=== PATIENT | female | born 1995 | race Caucasian/White ===

== ENCOUNTER 2020-04-29 06:36 | Inpatient (IN) ==
[2020-04-29] MEDS ORDERED: *HR* HYDROmorphone (PF) 1 MG/ML SYRINGE IVP ONE ×2 (07:06→10:22)
[2020-04-29] MEDS ORDERED: Isovue-370 500 ML BOTTLE IVP ONE (07:06)
[2020-04-29] MEDS ORDERED: Ketorolac 15 MG/ML VIAL IVP ONE (07:07)
[2020-04-29] MEDS ORDERED: 0.9 % Sodium Chloride 1,000 ML IVC ONE (07:13)
[2020-04-29 07:30] LABS: Basophils % 0.2 %; Eosinophils # 0.1 K/mcL (0.0-0.6); Eosinophils % 0.8 %; Hematocrit 33.8 % (35.3-44.9); Hemoglobin 10.7 g/dL (11.5-15.4); Lymphocytes # 1.7 K/mcL (0.6-4.6); Lymphocytes % 11.1 %; Mean Corpuscular HGB Conc 31.7 g/dL (31.6-35.5); Mean Corpuscular Hemoglobin 28.3 pg (28.0-33.3); Mean Corpuscular Volume 89.4 fL (83.0-100.0); Mean Platelet Volume 11.3 fL (9.4-12.4); Monocytes % 6.4 %; Neutrophils # 12.6 K/mcL (1.6-8.9); Platelet Count 251 K/mcL (140-400); Red Blood Count 3.78 M/mcL (3.82-4.97); Red Cell Distribution Width 15.8 % (11.5-14.5); Segmented Neutrophils % 80.5 %; White Blood Count 15.6 K/mcL (4.3-11.1)
[2020-04-29] MEDS ORDERED: *HR* LORazepam 2 MG/ML VIAL IVP ONE (07:38)
[2020-04-29 07:51] LABS: BUN/Creatinine Ratio 27 (6-26); Blood Urea Nitrogen 25 mg/dL (6-20); Calcium 9.4 mg/dL (8.6-10.3); Carbon Dioxide 27 mEq/L (23-29); Chloride 101 mEq/L (98-107); Glucose 117 mg/dL (70-105); Osmolality,Calculated 287 (280-300); Potassium 3.6 mEq/L (3.5-5.1); Sodium 136 mEq/L (136-145); eGFR For African Americans > 60 (> 60); eGFR For Non-African Americans > 60 (> 60)
[2020-04-29 07:53] LABS: Troponin I < 0.03 ng/mL (< 0.04)
[2020-04-29] MEDS ORDERED: Gentamicin 80 MG in 0.9 % Sodium Chloride 100 ML IVPB STA (09:50)
[2020-04-29 10:20] LABS: C-Reactive Protein > 300 mg/L (Less than 10)
[2020-04-29] MEDS ORDERED: Naloxone 0.4 MG/ML INJ IVP PRN (10:37)
[2020-04-29] MEDS ORDERED: Perflutren Lipid Microsphere 1.3 ML in 0.9 % Sodium Chloride 8.7 ML IVP PRN (10:38)
[2020-04-29] MEDS ORDERED: Vancomycin 0 MG in 0.9 % Sodium Chloride 250 ML IVPB SCH (11:00)
[2020-04-29] MEDS: Meropenem 1,000 MG in 0.9 % Sodium Chloride Mini Bag 100 ML IVPB SCH ×2 (17:55→19:41)
[2020-04-29] MEDS: 0.9 % Sodium Chloride 1,000 ML IVC SCH (17:55)
[2020-04-29] MEDS: Ketorolac 30 MG/ML VIAL IVP PRN (19:26)
[2020-04-29] MEDS ORDERED: Morphine Sulfate 2 MG/ML SYRINGE IVP ONE (21:32)
[2020-04-29] MEDS: Acetaminophen 325 MG TABLET PO PRN (21:36)
[2020-04-29 21:55] LABS: blaKPC Carbapenem-Resist Gene Not Detected (Not Detect)
[2020-04-29 21:56] LABS: Acinetobacter baumannii by PCR Not Detected (Not Detect); Candida albicans by PCR Not Detected (Not Detect); Candida glabrata by PCR Not Detected (Not Detect); Candida krusei by PCR Not Detected (Not Detect); Candida parapsilosis by PCR Not Detected (Not Detect); Candida tropicalis by PCR Not Detected (Not Detect); Enterobacter cloacae Cmplx PCR Not Detected (Not Detect); Enterobacteriaceae by PCR Not Detected (Not Detect); Enterococcus by PCR Not Detected (Not Detect); Escherichia coli by PCR Not Detected (Not Detect); Klebsiella oxytoca by PCR Not Detected (Not Detect); Klebsiella pneumoniae by PCR Not Detected (Not Detect); Proteus by PCR Not Detected (Not Detect); Pseudomonas aeruginosa by PCR Not Detected (Not Detect); Serratia marcescens by PCR Not Detected (Not Detect); Staphylococcus aureus by PCR DETECTED (Not Detect); Staphylococcus by PCR DETECTED (Not Detect); Streptococcus agalactiae(B)PCR Not Detected (Not Detect); Streptococcus by PCR Not Detected (Not Detect); Streptococcus pneumoniae PCR Not Detected (Not Detect); Streptococcus pyogenes (A) PCR Not Detected (Not Detect); mecA Methicillin-Resist Gene DETECTED (Not Detect)
[2020-04-29 22:38] LABS: Adenovirus Not Detected (Not Detect); Bordetella Pertussis Not Detected (Not Detect); Chlamydophila pneumoniae Not Detected (Not Detect); Coronavirus 229E Not Detected (Not Detect); Coronavirus HKU1 Not Detected (Not Detect); Coronavirus NL63 Not Detected (Not Detect); Coronavirus OC43 Not Detected (Not Detect); Human Metapneumovirus Not Detected (Not Detect); Human Rhinovirus/Enterovirus Not Detected (Not Detect); Influenza A Subtype 2009 H1 Not Detected (Not Detect); Influenza B Not Detected (Not Detect); Mycoplasma pneumoniae Not Detected (Not Detect); Parainfluenza Virus 1 Not Detected (Not Detect); Parainfluenza Virus 2 Not Detected (Not Detect); Parainfluenza Virus 3 Not Detected (Not Detect); Parainfluenza Virus 4 Not Detected (Not Detect); Respiratory Syncytial Virus Not Detected (Not Detect); SARS-CoV-2 Not Detected (Not Detect)
[2020-04-30] MEDS: Ketorolac 30 MG/ML VIAL IVP PRN ×3 (02:33→17:52)
[2020-04-30] MEDS: Meropenem 1,000 MG in 0.9 % Sodium Chloride Mini Bag 100 ML IVPB SCH ×3 (02:36→17:07)
[2020-04-30 03:14] LABS: Basophils % 0.3 %; Eosinophils % 0.3 %; Hematocrit 30.3 % (35.3-44.9); Hemoglobin 9.9 g/dL (11.5-15.4); Immature Granulocytes % 1.4 % (0-4); Lymphocytes # 1.9 K/mcL (0.6-4.6); Lymphocytes % 12.4 %; Mean Corpuscular HGB Conc 32.7 g/dL (31.6-35.5); Mean Corpuscular Hemoglobin 28.6 pg (28.0-33.3); Mean Corpuscular Volume 87.6 fL (83.0-100.0); Mean Platelet Volume 10.8 fL (9.4-12.4); Monocytes # 0.9 K/mcL (0.0-1.3); Monocytes % 5.5 %; Neutrophils # 12.5 K/mcL (1.6-8.9); Platelet Count 272 K/mcL (140-400); Red Blood Count 3.46 M/mcL (3.82-4.97); Red Cell Distribution Width 15.9 % (11.5-14.5); Segmented Neutrophils % 80.1 %; White Blood Count 15.5 K/mcL (4.3-11.1)
[2020-04-30 03:34] LABS: BUN/Creatinine Ratio 22 (6-26); Blood Urea Nitrogen 19 mg/dL (6-20); Carbon Dioxide 22 mEq/L (23-29); Chloride 107 mEq/L (98-107); Glucose 89 mg/dL (70-105); Osmolality,Calculated 290 (280-300); Potassium 3.7 mEq/L (3.5-5.1); Sodium 139 mEq/L (136-145); eGFR For African Americans > 60 (> 60); eGFR For Non-African Americans > 60 (> 60)
[2020-04-30] MEDS: 0.9 % Sodium Chloride 1,000 ML IVC SCH ×2 (05:24→17:09)
[2020-04-30] MEDS: *HR* Enoxaparin 40 MG/0.4 ML SYRINGE SQ SCH (05:26)
[2020-04-30] MEDS: Acetaminophen 325 MG TABLET PO PRN (07:55)
[2020-04-30] MEDS: *HR* OxyCODONE/APAP 5/325 TABLET PO PRN ×3 (11:55→22:15)
[2020-04-30 17:31] LABS: Rheumatoid Factor < 10 IU/mL (Less than 14)
[2020-04-30 18:35] LABS: HIV-1&2 Antibody & p24 Ag Nonreactive (Nonreactive)
[2020-04-30] MEDS ORDERED: Levalbuterol Neb 1.25 MG/3 ML IH ONE (22:49)
[2020-05-01] MEDS: Ketorolac 30 MG/ML VIAL IVP PRN ×2 (00:26→09:25)
[2020-05-01] MEDS: Vancomycin 1,250 MG/262.5 ML IV.SOLN IVPB SCH ×3 (00:27→23:00)
[2020-05-01] MEDS: 0.9 % Sodium Chloride 1,000 ML IVC SCH ×3 (04:43→14:39)
[2020-05-01] MEDS: Meropenem 1,000 MG in 0.9 % Sodium Chloride Mini Bag 100 ML IVPB SCH ×3 (04:45→18:15)
[2020-05-01 04:59] LABS: Basophils # 0.1 K/mcL (0.0-0.2); Basophils % 0.4 %; Eosinophils # 0.2 K/mcL (0.0-0.6); Hematocrit 31.4 % (35.3-44.9); Hemoglobin 9.9 g/dL (11.5-15.4); Immature Granulocytes % 3.1 % (0-4); Lymphocytes # 2.4 K/mcL (0.6-4.6); Lymphocytes % 15.3 %; Mean Corpuscular HGB Conc 31.5 g/dL (31.6-35.5); Mean Corpuscular Hemoglobin 27.4 pg (28.0-33.3); Mean Platelet Volume 10.3 fL (9.4-12.4); Monocytes # 0.9 K/mcL (0.0-1.3); Monocytes % 5.8 %; Neutrophils # 11.8 K/mcL (1.6-8.9); Platelet Count 345 K/mcL (140-400); Red Blood Count 3.61 M/mcL (3.82-4.97); Red Cell Distribution Width 15.9 % (11.5-14.5); Segmented Neutrophils % 74.4 %; White Blood Count 15.8 K/mcL (4.3-11.1)
[2020-05-01 05:17] LABS: % Iron Saturation 10 % (15-50); Alanine Aminotransferase 8 Units/L (7-52); Albumin 2.5 g/dL (3.5-5.7); Albumin/Globulin Ratio 0.8 (1.1-2.2); Alkaline Phosphatase 97 Units/L (34-104); Aspartate Amino Transferase 11 Units/L (13-39); BUN/Creatinine Ratio 18 (6-26); Bilirubin,Total 0.5 mg/dL (0.3-1.0); Blood Urea Nitrogen 15 mg/dL (6-20); Calcium 7.5 mg/dL (8.6-10.3); Carbon Dioxide 20 mEq/L (23-29); Chloride 113 mEq/L (98-107); Globulin 3.2 g/dL (2.4-3.5); Glucose 91 mg/dL (70-105); Iron 18 mcg/dL (50-170); Osmolality,Calculated 290 (280-300); Phosphorous 2.9 mg/dL (2.7-4.5); Potassium 3.6 mEq/L (3.5-5.1); Sodium 140 mEq/L (136-145); Total Protein 5.7 g/dL (6.4-8.9); Transferrin 130 mg/dL (203-362); eGFR For African Americans > 60 (> 60); eGFR For Non-African Americans > 60 (> 60)
[2020-05-01 05:42] LABS: Folate 12.2 ng/mL (3.0-16.0)
[2020-05-01] MEDS: *HR* OxyCODONE/APAP 5/325 TABLET PO PRN ×3 (05:53→15:34)
[2020-05-01] MEDS: *HR* Enoxaparin 40 MG/0.4 ML SYRINGE SQ SCH (05:53)
[2020-05-01] MEDS: Morphine Sulfate 2 MG/ML SYRINGE IVP PRN (17:06)
[2020-05-01] MEDS ORDERED: Morphine Sulfate 2 MG/ML SYRINGE IVP ONE (21:59)
[2020-05-01] MEDS ORDERED: Melatonin 3 MG TABLET PO ONE (22:26)
[2020-05-01] MEDS ORDERED: Ketorolac 15 MG/ML VIAL IVP ONE (23:22)
[2020-05-02] MEDS ORDERED: Acetaminophen IV 1,000 MG/100 ML INFUS..BTL IVPB ONE (00:08)
[2020-05-02] MEDS: Morphine Sulfate 2 MG/ML SYRINGE IVP PRN (02:45)
[2020-05-02] MEDS: Meropenem 1,000 MG in 0.9 % Sodium Chloride Mini Bag 100 ML IVPB SCH ×2 (02:45→11:15)
[2020-05-02 03:13] LABS: Hematocrit 29.4 % (35.3-44.9); Hemoglobin 9.6 g/dL (11.5-15.4); Mean Corpuscular HGB Conc 32.7 g/dL (31.6-35.5); Mean Corpuscular Hemoglobin 28.8 pg (28.0-33.3); Mean Corpuscular Volume 88.3 fL (83.0-100.0); Mean Platelet Volume 10.1 fL (9.4-12.4); Platelet Count 322 K/mcL (140-400); Red Blood Count 3.33 M/mcL (3.82-4.97); Red Cell Distribution Width 16.3 % (11.5-14.5); White Blood Count 15.7 K/mcL (4.3-11.1)
[2020-05-02 03:32] LABS: BUN/Creatinine Ratio 15 (6-26); Blood Urea Nitrogen 12 mg/dL (6-20); Calcium 7.7 mg/dL (8.6-10.3); Carbon Dioxide 18 mEq/L (23-29); Chloride 112 mEq/L (98-107); Glucose 89 mg/dL (70-105); Osmolality,Calculated 285 (280-300); Phosphorous 2.6 mg/dL (2.7-4.5); Potassium 3.4 mEq/L (3.5-5.1); Sodium 138 mEq/L (136-145); eGFR For African Americans > 60 (> 60); eGFR For Non-African Americans > 60 (> 60)
[2020-05-02 03:51] LABS: Lymphocytes # 2.8 K/mcL (0.6-4.6); Monocytes # 0.9 K/mcL (0.0-1.3); Neutrophils # 11.3 K/mcL (1.6-8.9)
[2020-05-02 03:52] LABS: Platelet Estimate Normal (Normal)
[2020-05-02] MEDS: *HR* Enoxaparin 40 MG/0.4 ML SYRINGE SQ SCH (05:36)
[2020-05-02] MEDS: 0.9 % Sodium Chloride 1,000 ML IVC SCH ×2 (05:36→11:28)
[2020-05-02] MEDS ORDERED: Ketorolac 15 MG/ML VIAL IVP ONE (06:24)
[2020-05-02] MEDS ORDERED: *HR* HYDROmorphone (PF) 1 MG/ML SYRINGE IVP ONE (10:21)
[2020-05-02 11:04] VITALS: BP 135/65
== END 2020-05-02 12:36 | disposition left against medical advice (07) | DRG 720 ==
LOC: EMEROOARM 06:36 → SUATTDRO 15:52 → 2ANU 15:52 → 2NENU 17:00 → 2ANU 04-30 00:51
PROVIDERS: ADMIT Internal Medicine; ATTEND Internal Medicine

== ENCOUNTER 2020-05-03 11:10 | Inpatient (IN) ==
[2020-05-03 11:42] LABS: ABG Base Excess -4 mEq/L (-2 to 3); ABG HCO3 19 mEq/L (21-27); ABG Oxygen Saturation 88 % (95-98); ABG PCO2 28 mmHg (35-45); ABG PH 7.45 pH Units (7.32-7.45); ABG PO2 51 mmHg (85-104); ABG TCO2 20 mEq/L (20-26); Blood Gas Pressure Support 12 cm H2O
[2020-05-03] MEDS ORDERED: *HR* LORazepam 2 MG/ML VIAL IVP ONE ×2 (11:56→14:52)
[2020-05-03] MEDS ORDERED: Vancomycin 1,250 MG/262.5 ML IV.SOLN IVPB ONE (12:00)
[2020-05-03 12:10] LABS: Hemoglobin 10.3 g/dL (11.5-15.4); Lymphocytes # 2.6 K/mcL (0.6-4.6); Mean Corpuscular HGB Conc 32.2 g/dL (31.6-35.5); Mean Corpuscular Hemoglobin 28.2 pg (28.0-33.3); Mean Corpuscular Volume 87.7 fL (83.0-100.0); Mean Platelet Volume 9.5 fL (9.4-12.4); Nucleated Red Blood Cells 0.1 /100 WBC (0); Platelet Count 422 K/mcL (140-400); Red Blood Count 3.65 M/mcL (3.82-4.97); Red Cell Distribution Width 16.4 % (11.5-14.5)
[2020-05-03] MEDS ORDERED: Meropenem 1,000 MG in 0.9 % Sodium Chloride Mini Bag 100 ML IVPB STA (12:14)
[2020-05-03 12:19] LABS: Bilirubin,Urine Negative (Negative); Blood,Urine Negative (Negative); Clarity,Urine Clear (Clear); Color,Urine Light-Yellow (Yellow); Glucose,Urine (UA) Normal (Normal); Granular Casts,Urine Few per lpf (None Seen); Hyaline Casts,Urine Few per lpf (None Seen); Ketones,Urine Negative (Negative); Leukocyte Esterase,Urine Negative (Negative); Mucus,Urine Few per lpf (None-Few); Nitrite,Urine Negative (Negative); PH,Urine 6.5 pH Units (5.0-8.0); Protein,Urine 50 mg/dL (Neg-Trace); RBC,Urine 0-3 per hpf (0-3); Specific Gravity,Urine 1.018 (1.010-1.025); Squamous Epithelial Cell,Urine Few per hpf (None-Few); Urobilinogen,Urine Normal (Normal); White Blood Cell Casts,Urine Few per lpf (None Seen)
[2020-05-03 12:22] LABS: White Blood Count 32.8 K/mcL (4.3-11.1)
[2020-05-03 12:25] LABS: BUN/Creatinine Ratio 9 (6-26); Blood Urea Nitrogen 8 mg/dL (6-20); C-Reactive Protein 185 mg/L (Less than 10); Calcium 7.7 mg/dL (8.6-10.3); Carbon Dioxide 20 mEq/L (23-29); Chloride 105 mEq/L (98-107); Glucose 134 mg/dL (70-105); Osmolality,Calculated 274 (280-300); Potassium 3.7 mEq/L (3.5-5.1); Sodium 132 mEq/L (136-145); eGFR For African Americans > 60 (> 60); eGFR For Non-African Americans > 60 (> 60)
[2020-05-03] MEDS ORDERED: Gentamicin 70 MG in 0.9 % Sodium Chloride 100 ML IVPB ONE ×2 (12:31→13:00)
[2020-05-03 12:42] LABS: Monocytes # 1.3 K/mcL (0.0-1.3); Neutrophils # 28.9 K/mcL (1.6-8.9)
[2020-05-03 12:43] LABS: Platelet Estimate Normal (Normal)
[2020-05-03] MEDS ORDERED: Naloxone 0.4 MG/ML INJ IVP PRN (13:06)
[2020-05-03] MEDS ORDERED: Ringers Solution, Lactated 1,000 ML IVC SCH (13:45)
[2020-05-03] MEDS ORDERED: *HR* Rocuronium Bromide 100 MG/10 ML VIAL IVP ONE (14:09)
[2020-05-03] MEDS ORDERED: *HR* Midazolam HCl 5 MG/5 ML VIAL IVP ONE ×4 (14:09→18:36)
[2020-05-03] MEDS ORDERED: *HR* Etomidate 40 MG/20 ML VIAL IVP ONE (14:09)
[2020-05-03] MEDS ORDERED: *HR* Propofol 200 MG/20 ML VIAL IVP ONE ×2 (14:09→17:33)
[2020-05-03] MEDS ORDERED: *HR* Midazolam HCl 2 MG/2 ML VIAL IVP ONE (14:09)
[2020-05-03] MEDS ORDERED: *HR* Succinylcholine 200 MG/10 ML VIAL IVP ONE ×2 (14:09→17:33)
[2020-05-03] MEDS ORDERED: Dexmedetomidine HCl 400 MCG/100 ML MLS IVC SCH (14:15)
[2020-05-03 14:20] LABS: Adenovirus Not Detected (Not Detect); Bordetella Pertussis Not Detected (Not Detect); Chlamydophila pneumoniae Not Detected (Not Detect); Coronavirus 229E Not Detected (Not Detect); Coronavirus HKU1 Not Detected (Not Detect); Coronavirus NL63 Not Detected (Not Detect); Coronavirus OC43 Not Detected (Not Detect); Human Metapneumovirus Not Detected (Not Detect); Human Rhinovirus/Enterovirus Not Detected (Not Detect); Influenza A Subtype 2009 H1 Not Detected (Not Detect); Influenza B Not Detected (Not Detect); Mycoplasma pneumoniae Not Detected (Not Detect); Parainfluenza Virus 1 Not Detected (Not Detect); Parainfluenza Virus 2 Not Detected (Not Detect); Parainfluenza Virus 3 Not Detected (Not Detect); Parainfluenza Virus 4 Not Detected (Not Detect); Respiratory Syncytial Virus Not Detected (Not Detect); SARS-CoV-2 Not Detected (Not Detect)
[2020-05-03] MEDS ORDERED: Ringers Solution, Lactated 1,000 ML IVC ONE ×3 (15:00→19:43)
[2020-05-03] MEDS ORDERED: *HR* HYDROmorphone 2 MG/ML SYRINGE IVP ONE (15:17)
[2020-05-03] MEDS ORDERED: *HR* HYDROmorphone (PF) 1 MG/ML SYRINGE IVP ONE (15:17)
[2020-05-03 15:38] LABS: Alanine Aminotransferase 7 Units/L (7-52); Albumin 2.5 g/dL (3.5-5.7); Albumin/Globulin Ratio 0.8 (1.1-2.2); Alkaline Phosphatase 91 Units/L (34-104); Aspartate Amino Transferase 25 Units/L (13-39); BUN/Creatinine Ratio 8 (6-26); Bilirubin,Total 0.4 mg/dL (0.3-1.0); Blood Urea Nitrogen 7 mg/dL (6-20); Calcium 7.5 mg/dL (8.6-10.3); Carbon Dioxide 19 mEq/L (23-29); Chloride 105 mEq/L (98-107); Globulin 3.3 g/dL (2.4-3.5); Glucose 85 mg/dL (70-105); Osmolality,Calculated 271 (280-300); Potassium 4.1 mEq/L (3.5-5.1); Sodium 132 mEq/L (136-145); Total Protein 5.8 g/dL (6.4-8.9); eGFR For African Americans > 60 (> 60); eGFR For Non-African Americans > 60 (> 60)
[2020-05-03 15:40] LABS: Creatine Kinase 25 Units/L (30-223); Troponin I < 0.03 ng/mL (< 0.04)
[2020-05-03] MEDS ORDERED: Ipratropium/Albuterol Neb 3 ML IH PRN (16:19)
[2020-05-03] MEDS ORDERED: *HR* FentaNYL (PF) 100 MCG/2 ML VIAL IVP PRN (16:21)
[2020-05-03] MEDS: *HR* Midazolam HCl 2 MG/2 ML VIAL IVP PRN (17:14)
[2020-05-03] MEDS ORDERED: D5% in Lactated Ringers 1,000 ML IVC SCH (17:15)
[2020-05-03] MEDS ORDERED: Lidocaine -MPF 2% 2 ML VIAL ONE (17:33)
[2020-05-03] MEDS ORDERED: *HR* FentaNYL (PF) 100 MCG/2 ML VIAL ONE (17:33)
[2020-05-03] MEDS ORDERED: Acetaminophen IV 1,000 MG/100 ML INFUS..BTL IVPB SCH (18:00)
[2020-05-03] MEDS: FentaNYL (PF) 1,000 MCG/100 ML IV.SOLN IVC SCH (18:26)
[2020-05-03] MEDS: Midazolam HCl 50 MG/100 ML IV.SOLN IVC SCH (18:27)
[2020-05-03 18:52] LABS: ABG Base Excess -4 mEq/L (-2 to 3); ABG HCO3 22 mEq/L (21-27); ABG Oxygen Saturation 94 % (95-98); ABG PCO2 42 mmHg (35-45); ABG PH 7.33 pH Units (7.32-7.45); ABG PO2 78 mmHg (85-104); ABG TCO2 23 mEq/L (20-26); Blood Gas VT 400 cc
[2020-05-03] MEDS ORDERED: Artificial Tears SOLN 15 ML BOTTLE BOTH EYES PRN (19:56)
[2020-05-03 20:04] LABS: Lipase 3 Units/L (11-82)
[2020-05-03] MEDS: Artificial Tears SOLN 15 ML BOTTLE BOTH EYES SCH ×2 (20:31→23:43)
[2020-05-03] MEDS: Norepinephrine 4 MG/254 ML IV.SOLN IVC SCH (20:32)
[2020-05-03] MEDS: Chlorhexidine Rinse 15 ML MOUTHWASH MM SCH (20:33)
[2020-05-03 21:07] LABS: BUN/Creatinine Ratio 8 (6-26); Blood Urea Nitrogen 6 mg/dL (6-20); Calcium 7.3 mg/dL (8.6-10.3); Carbon Dioxide 21 mEq/L (23-29); Chloride 105 mEq/L (98-107); Glucose 94 mg/dL (70-105); Osmolality,Calculated 269 (280-300); Potassium 4.2 mEq/L (3.5-5.1); Sodium 131 mEq/L (136-145); eGFR For African Americans > 60 (> 60); eGFR For Non-African Americans > 60 (> 60)
[2020-05-03 21:13] LABS: Basophils % 0.2 %; Hemoglobin 8.8 g/dL (11.5-15.4); Monocytes % 4.2 %
[2020-05-03 21:14] LABS: Basophils # 0.1 K/mcL (0.0-0.2); Eosinophils # 0.4 K/mcL (0.0-0.6); Eosinophils % 1.3 %; Hematocrit 27.2 % (35.3-44.9); Immature Granulocytes % 2.1 % (0-4); Lymphocytes # 3.5 K/mcL (0.6-4.6); Lymphocytes % 11.6 %; Mean Corpuscular HGB Conc 32.4 g/dL (31.6-35.5); Mean Corpuscular Hemoglobin 28.7 pg (28.0-33.3); Mean Corpuscular Volume 88.6 fL (83.0-100.0); Mean Platelet Volume 9.5 fL (9.4-12.4); Monocytes # 1.3 K/mcL (0.0-1.3); Platelet Count 343 K/mcL (140-400); Red Blood Count 3.07 M/mcL (3.82-4.97); Red Cell Distribution Width 16.5 % (11.5-14.5); Segmented Neutrophils % 80.6 %
[2020-05-03 21:15] LABS: Neutrophils # 24.3 K/mcL (1.6-8.9)
[2020-05-03 21:18] LABS: White Blood Count 30.1 K/mcL (4.3-11.1)
[2020-05-03] MEDS ORDERED: Famotidine 20 MG/2 ML VIAL IVP ONE (21:22)
[2020-05-03] MEDS ORDERED: Pantoprazole 40 MG VIAL IVP ONE (21:40)
[2020-05-03 21:53] LABS: Platelet Estimate Normal (Normal)
[2020-05-03] MEDS ORDERED: Isovue-370 500 ML BOTTLE IVP ONE (21:54)
[2020-05-03 22:15] LABS: ABG Base Excess -3 mEq/L (-2 to 3); ABG HCO3 22 mEq/L (21-27); ABG Oxygen Saturation 97 % (95-98); ABG PCO2 35 mmHg (35-45); ABG PO2 87 mmHg (85-104); ABG TCO2 23 mEq/L (20-26); Blood Gas Modality ASSIST CONTROL; Blood Gas VT 400 cc
[2020-05-03] MEDS: Meropenem 2,000 MG in Water for inj. (sterile) 20 ML IVP SCH (22:18)
[2020-05-03] MEDS: *HR* Heparin 5,000 UNIT/ML VIAL SQ SCH (22:19)
[2020-05-04] MEDS: Artificial Tears SOLN 15 ML BOTTLE BOTH EYES SCH ×6 (03:38→23:23)
[2020-05-04] MEDS: FentaNYL (PF) 1,000 MCG/100 ML IV.SOLN IVC SCH ×4 (03:38→22:37)
[2020-05-04 03:49] LABS: Basophils # 0.1 K/mcL (0.0-0.2); Basophils % 0.4 %; Eosinophils % 2.9 %; Hematocrit 28.8 % (35.3-44.9); Hemoglobin 9.3 g/dL (11.5-15.4); Immature Granulocytes % 4.7 % (0-4); Lymphocytes # 3.7 K/mcL (0.6-4.6); Lymphocytes % 14.1 %; Mean Corpuscular HGB Conc 32.3 g/dL (31.6-35.5); Mean Corpuscular Hemoglobin 28.9 pg (28.0-33.3); Mean Corpuscular Volume 89.4 fL (83.0-100.0); Mean Platelet Volume 9.6 fL (9.4-12.4); Monocytes # 1.3 K/mcL (0.0-1.3); Monocytes % 5.1 %; Neutrophils # 18.9 K/mcL (1.6-8.9); Platelet Count 380 K/mcL (140-400); Red Blood Count 3.22 M/mcL (3.82-4.97); Red Cell Distribution Width 16.6 % (11.5-14.5); Segmented Neutrophils % 72.8 %; White Blood Count 25.9 K/mcL (4.3-11.1)
[2020-05-04 03:50] LABS: INR 1.4; Prothrombin Time 16.2 Seconds (9.4-12.1)
[2020-05-04 03:51] LABS: Eosinophils # 0.8 K/mcL (0.0-0.6)
[2020-05-04 04:05] LABS: Albumin 2.2 g/dL (3.5-5.7); Albumin/Globulin Ratio 0.7 (1.1-2.2); Bilirubin,Direct 0.1 mg/dL (0.0-0.2); Bilirubin,Indirect 0.3 mg/dL (0.0-1.0); Bilirubin,Total 0.4 mg/dL (0.3-1.0); Total Protein 5.2 g/dL (6.4-8.9)
[2020-05-04 04:17] LABS: Anisocytosis 1+ (Not Present); Hypochromasia Present (Not Present); Platelet Estimate Normal (Normal)
[2020-05-04 04:48] LABS: ABG Base Excess -1 mEq/L (-2 to 3); ABG HCO3 22 mEq/L (21-27); ABG Oxygen Saturation 99 % (95-98); ABG PCO2 32 mmHg (35-45); ABG PH 7.45 pH Units (7.32-7.45); ABG PO2 133 mmHg (85-104); ABG TCO2 23 mEq/L (20-26); Blood Gas Modality AF; Blood Gas VT 400 cc
[2020-05-04] MEDS: *HR* Heparin 5,000 UNIT/ML VIAL SQ SCH ×2 (05:22→17:18)
[2020-05-04 05:30] LABS: BUN/Creatinine Ratio 7 (6-26); Blood Urea Nitrogen 6 mg/dL (6-20); Calcium 7.6 mg/dL (8.6-10.3); Carbon Dioxide 22 mEq/L (23-29); Chloride 110 mEq/L (98-107); Glucose 85 mg/dL (70-105); Osmolality,Calculated 283 (280-300); Sodium 138 mEq/L (136-145); eGFR For African Americans > 60 (> 60); eGFR For Non-African Americans > 60 (> 60)
[2020-05-04] MEDS: Meropenem 2,000 MG in Water for inj. (sterile) 20 ML IVP SCH ×3 (07:43→23:23)
[2020-05-04] MEDS: Chlorhexidine Rinse 15 ML MOUTHWASH MM SCH ×2 (07:43→20:03)
[2020-05-04 11:32] LABS: RBC,Pleural Fluid 47000 RBC/mcL
[2020-05-04 12:14] LABS: Total Protein,Pleural Fluid 3.7 g/dL
[2020-05-04 14:21] LABS: Appearance of Pleural Fl Hazy (Clear)
[2020-05-04 14:23] LABS: Basophils,Pleural Fluid 0 %; Eosinophils,Pleural Fluid 0 %
[2020-05-04] MEDS: Midazolam HCl 50 MG/100 ML IV.SOLN IVC SCH (18:26)
[2020-05-04] MEDS: Norepinephrine 4 MG/254 ML IV.SOLN IVC SCH (22:09)
[2020-05-04] MEDS: Vancomycin 1,250 MG/262.5 ML IV.SOLN IVPB SCH (22:10)
[2020-05-04] MEDS ORDERED: Dextrose Gel 15 GM/37.5 ML TUBE PO PRN ×2 (23:26)
[2020-05-04] MEDS ORDERED: D5% in Water 1,000 ML IVC PRN (23:26)
[2020-05-04] MEDS: *HR* Dextrose 50 % in Water (Vial) 50 ML VIAL IVP PRN (23:32)
[2020-05-05] MEDS: Artificial Tears SOLN 15 ML BOTTLE BOTH EYES SCH ×6 (03:16→23:22)
[2020-05-05] MEDS: FentaNYL (PF) 1,000 MCG/100 ML IV.SOLN IVC SCH ×2 (03:16→07:10)
[2020-05-05 04:13] LABS: Basophils % 0.3 %; Eosinophils # 0.4 K/mcL (0.0-0.6); Eosinophils % 2.9 %; Hematocrit 25.2 % (35.3-44.9); Hemoglobin 8.1 g/dL (11.5-15.4); Immature Granulocytes % 3.2 % (0-4); Lymphocytes # 2.7 K/mcL (0.6-4.6); Lymphocytes % 17.9 %; Mean Corpuscular HGB Conc 32.1 g/dL (31.6-35.5); Mean Corpuscular Hemoglobin 28.8 pg (28.0-33.3); Mean Corpuscular Volume 89.7 fL (83.0-100.0); Mean Platelet Volume 9.7 fL (9.4-12.4); Monocytes # 0.6 K/mcL (0.0-1.3); Monocytes % 3.9 %; Neutrophils # 10.8 K/mcL (1.6-8.9); Platelet Count 284 K/mcL (140-400); Red Blood Count 2.81 M/mcL (3.82-4.97); Red Cell Distribution Width 16.5 % (11.5-14.5); Segmented Neutrophils % 71.8 %; White Blood Count 15.1 K/mcL (4.3-11.1)
[2020-05-05 04:41] LABS: BUN/Creatinine Ratio 7 (6-26); Blood Urea Nitrogen 4 mg/dL (6-20); Calcium 7.4 mg/dL (8.6-10.3); Carbon Dioxide 22 mEq/L (23-29); Chloride 107 mEq/L (98-107); Glucose 69 mg/dL (70-105); Osmolality,Calculated 281 (280-300); Potassium 3.7 mEq/L (3.5-5.1); Sodium 138 mEq/L (136-145); eGFR For African Americans > 60 (> 60); eGFR For Non-African Americans > 60 (> 60)
[2020-05-05] MEDS: Vancomycin 1,250 MG/262.5 ML IV.SOLN IVPB SCH ×3 (05:07→23:23)
[2020-05-05] MEDS: *HR* Heparin 5,000 UNIT/ML VIAL SQ SCH ×2 (05:07→17:52)
[2020-05-05] MEDS: *HR* Dextrose 50 % in Water (Vial) 50 ML VIAL IVP PRN (05:08)
[2020-05-05 05:28] LABS: ABG Base Excess -1 mEq/L (-2 to 3); ABG HCO3 23 mEq/L (21-27); ABG Oxygen Saturation 99 % (95-98); ABG PCO2 31 mmHg (35-45); ABG PH 7.48 pH Units (7.32-7.45); ABG PO2 115 mmHg (85-104); ABG TCO2 24 mEq/L (20-26); Blood Gas Modality VC+; Blood Gas VT 380 cc
[2020-05-05] MEDS: D5% in Water 1,000 ML IVC SCH ×2 (07:26→17:46)
[2020-05-05] MEDS: Meropenem 2,000 MG in Water for inj. (sterile) 20 ML IVP SCH ×3 (07:36→23:22)
[2020-05-05] MEDS: Chlorhexidine Rinse 15 ML MOUTHWASH MM SCH ×2 (07:36→20:17)
[2020-05-05] MEDS: Dexmedetomidine HCl 400 MCG/100 ML MLS IVC SCH ×3 (10:59→21:30)
[2020-05-05] MEDS: FentaNYL (PF) 2,500 MCG/50 ML IV.SOLN IVC SCH ×2 (13:05→23:35)
[2020-05-05] MEDS ORDERED: *HR* Rocuronium Bromide 50 MG/5 ML VIAL IVP ONE ×2 (14:27→16:43)
[2020-05-05 17:30] LABS: Source of Body Fluid RLL BAL
[2020-05-05] MEDS: Midazolam HCl 50 MG/100 ML IV.SOLN IVC SCH (17:47)
[2020-05-05] MEDS: Norepinephrine 4 MG/254 ML IV.SOLN IVC SCH (20:15)
[2020-05-05 22:04] LABS: Appearance of Body Fluid Slightly Hazy (Clear); Volume of Body Fluid 15 mL
[2020-05-05 22:56] LABS: Appearance of Body Fluid Hazy (Clear); Volume of Body Fluid 12 mL
[2020-05-06] MEDS: Dexmedetomidine HCl 400 MCG/100 ML MLS IVC SCH ×5 (04:00→21:02)
[2020-05-06 04:48] LABS: ABG Base Excess 4 mEq/L (-2 to 3); ABG HCO3 29 mEq/L (21-27); ABG Oxygen Saturation 98 % (95-98); ABG PCO2 45 mmHg (35-45); ABG PH 7.42 pH Units (7.32-7.45); ABG PO2 107 mmHg (85-104); ABG TCO2 30 mEq/L (20-26); Blood Gas Modality VC+; Blood Gas VT 380 cc
[2020-05-06 04:55] LABS: Basophils % 0.2 %; Eosinophils # 0.4 K/mcL (0.0-0.6); Hematocrit 26.8 % (35.3-44.9); Hemoglobin 8.3 g/dL (11.5-15.4); Immature Granulocytes % 3.1 % (0-4); Lymphocytes # 2.4 K/mcL (0.6-4.6); Lymphocytes % 16.7 %; Mean Corpuscular Hemoglobin 27.4 pg (28.0-33.3); Mean Corpuscular Volume 88.4 fL (83.0-100.0); Mean Platelet Volume 9.9 fL (9.4-12.4); Monocytes # 0.7 K/mcL (0.0-1.3); Monocytes % 4.8 %; Neutrophils # 10.4 K/mcL (1.6-8.9); Platelet Count 355 K/mcL (140-400); Red Blood Count 3.03 M/mcL (3.82-4.97); Red Cell Distribution Width 15.9 % (11.5-14.5); Segmented Neutrophils % 72.2 %; White Blood Count 14.4 K/mcL (4.3-11.1)
[2020-05-06] MEDS: Artificial Tears SOLN 15 ML BOTTLE BOTH EYES SCH ×6 (04:59→23:59)
[2020-05-06] MEDS: D5% in Water 1,000 ML IVC SCH ×3 (05:00→23:34)
[2020-05-06 05:11] LABS: Alanine Aminotransferase 4 Units/L (7-52); Albumin 2.1 g/dL (3.5-5.7); Albumin/Globulin Ratio 0.6 (1.1-2.2); Alkaline Phosphatase 73 Units/L (34-104); Aspartate Amino Transferase 10 Units/L (13-39); BUN/Creatinine Ratio 6 (6-26); Bilirubin,Total 0.4 mg/dL (0.3-1.0); Blood Urea Nitrogen 3 mg/dL (6-20); Calcium 7.6 mg/dL (8.6-10.3); Carbon Dioxide 25 mEq/L (23-29); Chloride 106 mEq/L (98-107); Globulin 3.5 g/dL (2.4-3.5); Glucose 123 mg/dL (70-105); Osmolality,Calculated 284 (280-300); Potassium 4.1 mEq/L (3.5-5.1); Sodium 138 mEq/L (136-145); Total Protein 5.6 g/dL (6.4-8.9); eGFR For African Americans > 60 (> 60); eGFR For Non-African Americans > 60 (> 60)
[2020-05-06] MEDS: Vancomycin 1,250 MG/262.5 ML IV.SOLN IVPB SCH (05:49)
[2020-05-06] MEDS: *HR* Heparin 5,000 UNIT/ML VIAL SQ SCH ×2 (05:49→17:30)
[2020-05-06] MEDS: Chlorhexidine Rinse 15 ML MOUTHWASH MM SCH ×2 (08:17→21:37)
[2020-05-06] MEDS: Meropenem 2,000 MG in Water for inj. (sterile) 20 ML IVP SCH ×3 (08:17→23:33)
[2020-05-06] MEDS: FentaNYL (PF) 2,500 MCG/50 ML IV.SOLN IVC SCH (11:16)
[2020-05-06] MEDS: Midazolam HCl 50 MG/100 ML IV.SOLN IVC SCH (15:32)
[2020-05-06] MEDS: Ziprasidone 10 MG in Water for inj. (sterile) 0.5 ML IM SCH (15:38)
[2020-05-06] MEDS: Norepinephrine 4 MG/254 ML IV.SOLN IVC SCH (19:20)
[2020-05-06] MEDS: *HR* Midazolam HCl 2 MG/2 ML VIAL IVP PRN (22:07)
[2020-05-07] MEDS: FentaNYL (PF) 2,500 MCG/50 ML IV.SOLN IVC SCH ×2 (00:30→16:41)
[2020-05-07] MEDS: Dexmedetomidine HCl 400 MCG/100 ML MLS IVC SCH ×4 (03:55→18:48)
[2020-05-07] MEDS: Artificial Tears SOLN 15 ML BOTTLE BOTH EYES SCH ×6 (03:55→23:44)
[2020-05-07 04:28] LABS: Basophils % 0.1 %; Eosinophils # 0.3 K/mcL (0.0-0.6); Eosinophils % 1.9 %; Hematocrit 26.6 % (35.3-44.9); Hemoglobin 8.1 g/dL (11.5-15.4); Immature Granulocytes % 1.9 % (0-4); Lymphocytes # 2.2 K/mcL (0.6-4.6); Lymphocytes % 14.9 %; Mean Corpuscular HGB Conc 30.5 g/dL (31.6-35.5); Mean Corpuscular Hemoglobin 27.6 pg (28.0-33.3); Mean Corpuscular Volume 90.5 fL (83.0-100.0); Mean Platelet Volume 10.1 fL (9.4-12.4); Monocytes # 0.8 K/mcL (0.0-1.3); Monocytes % 5.4 %; Platelet Count 381 K/mcL (140-400); Red Blood Count 2.94 M/mcL (3.82-4.97); Red Cell Distribution Width 15.6 % (11.5-14.5); Segmented Neutrophils % 75.8 %; White Blood Count 14.5 K/mcL (4.3-11.1)
[2020-05-07 04:45] LABS: ABG Base Excess 4 mEq/L (-2 to 3); ABG HCO3 29 mEq/L (21-27); ABG Oxygen Saturation 98 % (95-98); ABG PCO2 46 mmHg (35-45); ABG PH 7.41 pH Units (7.32-7.45); ABG PO2 104 mmHg (85-104); ABG TCO2 31 mEq/L (20-26); Blood Gas Modality ASSIST CONTROL; Blood Gas VT 380 cc
[2020-05-07 04:47] LABS: BUN/Creatinine Ratio 8 (6-26); Blood Urea Nitrogen 4 mg/dL (6-20); Calcium 7.6 mg/dL (8.6-10.3); Carbon Dioxide 29 mEq/L (23-29); Chloride 103 mEq/L (98-107); Glucose 118 mg/dL (70-105); Osmolality,Calculated 282 (280-300); Potassium 3.9 mEq/L (3.5-5.1); Sodium 137 mEq/L (136-145); eGFR For African Americans > 60 (> 60); eGFR For Non-African Americans > 60 (> 60)
[2020-05-07] MEDS: *HR* Heparin 5,000 UNIT/ML VIAL SQ SCH ×2 (05:54→18:48)
[2020-05-07] MEDS ORDERED: Water for inj. (sterile) 20 ML IV ONE ×2 (08:25→08:44)
[2020-05-07] MEDS: Meropenem 2,000 MG in Water for inj. (sterile) 20 ML IVP SCH ×3 (08:30→23:37)
[2020-05-07] MEDS: D5% in Water 1,000 ML IVC SCH ×2 (08:31→19:54)
[2020-05-07] MEDS: Chlorhexidine Rinse 15 ML MOUTHWASH MM SCH ×2 (08:32→19:53)
[2020-05-07] MEDS: Ziprasidone 10 MG in Water for inj. (sterile) 0.5 ML IM SCH (08:47)
[2020-05-07] MEDS ORDERED: *HR* LORazepam 2 MG/ML VIAL IVP PRN (14:28)
[2020-05-08] MEDS: Dexmedetomidine HCl 400 MCG/100 ML MLS IVC SCH ×5 (00:43→21:30)
[2020-05-08] MEDS: Norepinephrine 4 MG/254 ML IV.SOLN IVC SCH ×2 (01:15→22:20)
[2020-05-08 04:33] LABS: ABG Base Excess 7 mEq/L (-2 to 3); ABG HCO3 32 mEq/L (21-27); ABG Oxygen Saturation 96 % (95-98); ABG PCO2 49 mmHg (35-45); ABG PH 7.43 pH Units (7.32-7.45); ABG PO2 82 mmHg (85-104); ABG TCO2 34 mEq/L (20-26); Blood Gas VT 380 cc
[2020-05-08] MEDS: Artificial Tears SOLN 15 ML BOTTLE BOTH EYES SCH ×5 (04:37→19:44)
[2020-05-08 05:06] LABS: Basophils % 0.2 %; Eosinophils # 0.3 K/mcL (0.0-0.6); Eosinophils % 2.9 %; Hematocrit 24.9 % (35.3-44.9); Hemoglobin 7.9 g/dL (11.5-15.4); Lymphocytes # 2.2 K/mcL (0.6-4.6); Lymphocytes % 21.9 %; Mean Corpuscular HGB Conc 31.7 g/dL (31.6-35.5); Mean Corpuscular Hemoglobin 28.4 pg (28.0-33.3); Mean Corpuscular Volume 89.6 fL (83.0-100.0); Mean Platelet Volume 10.3 fL (9.4-12.4); Monocytes # 0.7 K/mcL (0.0-1.3); Monocytes % 6.4 %; Neutrophils # 6.9 K/mcL (1.6-8.9); Platelet Count 425 K/mcL (140-400); Red Blood Count 2.78 M/mcL (3.82-4.97); Red Cell Distribution Width 15.4 % (11.5-14.5); Segmented Neutrophils % 67.6 %; White Blood Count 10.2 K/mcL (4.3-11.1)
[2020-05-08 05:11] LABS: BUN/Creatinine Ratio 10 (6-26); Blood Urea Nitrogen 5 mg/dL (6-20); Calcium 7.6 mg/dL (8.6-10.3); Carbon Dioxide 31 mEq/L (23-29); Chloride 100 mEq/L (98-107); Glucose 110 mg/dL (70-105); Osmolality,Calculated 278 (280-300); Sodium 135 mEq/L (136-145); eGFR For African Americans > 60 (> 60); eGFR For Non-African Americans > 60 (> 60)
[2020-05-08] MEDS: FentaNYL (PF) 2,500 MCG/50 ML IV.SOLN IVC SCH ×2 (05:30→19:05)
[2020-05-08] MEDS: D5% in Water 1,000 ML IVC SCH ×2 (05:36→16:24)
[2020-05-08] MEDS: *HR* Heparin 5,000 UNIT/ML VIAL SQ SCH ×2 (05:39→18:29)
[2020-05-08] MEDS: Chlorhexidine Rinse 15 ML MOUTHWASH MM SCH ×2 (08:49→19:45)
[2020-05-08] MEDS: Meropenem 2,000 MG in Water for inj. (sterile) 20 ML IVP SCH ×2 (08:49→16:26)
[2020-05-08] MEDS: Ziprasidone 10 MG in Water for inj. (sterile) 0.5 ML IM SCH (08:49)
[2020-05-08] MEDS: *HR* LORazepam 2 MG/ML VIAL IVP SCH ×3 (12:32→19:44)
[2020-05-09] MEDS: *HR* LORazepam 2 MG/ML VIAL IVP SCH ×7 (00:13→23:47)
[2020-05-09] MEDS: Artificial Tears SOLN 15 ML BOTTLE BOTH EYES SCH ×7 (00:13→23:44)
[2020-05-09] MEDS: Meropenem 2,000 MG in Water for inj. (sterile) 20 ML IVP SCH ×4 (00:14→23:41)
[2020-05-09] MEDS: D5% in Water 1,000 ML IVC SCH ×3 (01:59→19:37)
[2020-05-09] MEDS: Dexmedetomidine HCl 400 MCG/100 ML MLS IVC SCH ×5 (02:07→23:41)
[2020-05-09 04:29] LABS: Basophils % 0.2 %; Eosinophils # 0.3 K/mcL (0.0-0.6); Hematocrit 25.2 % (35.3-44.9); Hemoglobin 7.9 g/dL (11.5-15.4); Immature Granulocytes % 0.7 % (0-4); Lymphocytes % 19.9 %; Mean Corpuscular HGB Conc 31.3 g/dL (31.6-35.5); Mean Corpuscular Volume 89.4 fL (83.0-100.0); Monocytes # 0.7 K/mcL (0.0-1.3); Neutrophils # 6.9 K/mcL (1.6-8.9); Platelet Count 487 K/mcL (140-400); Red Blood Count 2.82 M/mcL (3.82-4.97); Red Cell Distribution Width 14.9 % (11.5-14.5); Segmented Neutrophils % 69.2 %
[2020-05-09 04:49] LABS: BUN/Creatinine Ratio 12 (6-26); Blood Urea Nitrogen 6 mg/dL (6-20); Calcium 7.9 mg/dL (8.6-10.3); Carbon Dioxide 33 mEq/L (23-29); Chloride 97 mEq/L (98-107); Glucose 110 mg/dL (70-105); Osmolality,Calculated 274 (280-300); Potassium 4.1 mEq/L (3.5-5.1); Sodium 133 mEq/L (136-145); eGFR For African Americans > 60 (> 60); eGFR For Non-African Americans > 60 (> 60)
[2020-05-09 04:58] LABS: ABG Base Excess 8 mEq/L (-2 to 3); ABG HCO3 33 mEq/L (21-27); ABG Oxygen Saturation 97 % (95-98); ABG PCO2 48 mmHg (35-45); ABG PH 7.44 pH Units (7.32-7.45); ABG PO2 92 mmHg (85-104); ABG TCO2 34 mEq/L (20-26); Blood Gas Modality ASSIST CONTROL; Blood Gas VT 380 cc
[2020-05-09] MEDS: *HR* Heparin 5,000 UNIT/ML VIAL SQ SCH ×2 (05:31→16:02)
[2020-05-09] MEDS: FentaNYL (PF) 2,500 MCG/50 ML IV.SOLN IVC SCH ×2 (06:49→19:31)
[2020-05-09] MEDS: Chlorhexidine Rinse 15 ML MOUTHWASH MM SCH ×2 (09:00→19:35)
[2020-05-09] MEDS: Ziprasidone 10 MG in Water for inj. (sterile) 0.5 ML IM SCH (09:01)
[2020-05-09] MEDS ORDERED: *HR* LORazepam 2 MG/ML VIAL IVP ONE (10:30)
[2020-05-09] MEDS ORDERED: Water for inj. (sterile) 20 ML IV ONE (12:07)
[2020-05-09] MEDS ORDERED: QUEtiapine Fumarate 25 MG TABLET PO SCH (12:15)
[2020-05-09] MEDS: Sennosides/Docusate Sodium TABLET PO SCH ×2 (14:24→19:35)
[2020-05-09] MEDS: Norepinephrine 4 MG/254 ML IV.SOLN IVC SCH (19:39)
[2020-05-10] MEDS: Artificial Tears SOLN 15 ML BOTTLE BOTH EYES SCH ×6 (03:24→23:57)
[2020-05-10] MEDS: *HR* LORazepam 2 MG/ML VIAL IVP SCH ×6 (03:28→23:56)
[2020-05-10 03:58] LABS: ABG Base Excess 8 mEq/L (-2 to 3); ABG HCO3 33 mEq/L (21-27); ABG Oxygen Saturation 98 % (95-98); ABG PCO2 49 mmHg (35-45); ABG PH 7.44 pH Units (7.32-7.45); ABG PO2 100 mmHg (85-104); ABG TCO2 34 mEq/L (20-26); Blood Gas Modality VC; Blood Gas VT 380 cc
[2020-05-10 04:07] LABS: Basophils % 0.4 %; Eosinophils # 0.3 K/mcL (0.0-0.6); Hematocrit 26.3 % (35.3-44.9); Hemoglobin 8.1 g/dL (11.5-15.4); Immature Granulocytes % 0.6 % (0-4); Lymphocytes # 1.7 K/mcL (0.6-4.6); Lymphocytes % 24.6 %; Mean Corpuscular HGB Conc 30.8 g/dL (31.6-35.5); Mean Corpuscular Hemoglobin 28.4 pg (28.0-33.3); Mean Corpuscular Volume 92.3 fL (83.0-100.0); Mean Platelet Volume 9.7 fL (9.4-12.4); Monocytes # 0.7 K/mcL (0.0-1.3); Monocytes % 9.3 %; Neutrophils # 4.3 K/mcL (1.6-8.9); Platelet Count 530 K/mcL (140-400); Red Blood Count 2.85 M/mcL (3.82-4.97); Red Cell Distribution Width 14.7 % (11.5-14.5); Segmented Neutrophils % 61.1 %
[2020-05-10 04:29] LABS: BUN/Creatinine Ratio 18 (6-26); Blood Urea Nitrogen 8 mg/dL (6-20); Calcium 8.3 mg/dL (8.6-10.3); Carbon Dioxide 32 mEq/L (23-29); Chloride 101 mEq/L (98-107); Glucose 98 mg/dL (70-105); Osmolality,Calculated 284 (280-300); Potassium 3.8 mEq/L (3.5-5.1); Sodium 138 mEq/L (136-145); eGFR For African Americans > 60 (> 60); eGFR For Non-African Americans > 60 (> 60)
[2020-05-10] MEDS: *HR* Heparin 5,000 UNIT/ML VIAL SQ SCH ×2 (05:54→18:30)
[2020-05-10] MEDS: Dexmedetomidine HCl 400 MCG/100 ML MLS IVC SCH ×3 (05:55→21:50)
[2020-05-10] MEDS: FentaNYL (PF) 2,500 MCG/50 ML IV.SOLN IVC SCH ×2 (08:01→21:00)
[2020-05-10] MEDS: Meropenem 2,000 MG in Water for inj. (sterile) 20 ML IVP SCH ×3 (09:17→23:56)
[2020-05-10] MEDS: Sennosides/Docusate Sodium TABLET PO SCH ×2 (09:17→20:08)
[2020-05-10] MEDS: Chlorhexidine Rinse 15 ML MOUTHWASH MM SCH ×2 (09:17→20:08)
[2020-05-10] MEDS: Ziprasidone 10 MG in Water for inj. (sterile) 0.5 ML IM SCH (09:18)
[2020-05-10] MEDS: D5% in Water 1,000 ML IVC SCH ×2 (09:19→16:23)
[2020-05-10] MEDS: Norepinephrine 4 MG/254 ML IV.SOLN IVC SCH (20:08)
[2020-05-10] MEDS: *HR* Dextrose 50 % in Water (Vial) 50 ML VIAL IVP PRN ×2 (20:12→21:59)
[2020-05-11] MEDS: Artificial Tears SOLN 15 ML BOTTLE BOTH EYES SCH ×6 (03:50→23:47)
[2020-05-11] MEDS: *HR* LORazepam 2 MG/ML VIAL IVP SCH ×6 (03:50→23:47)
[2020-05-11] MEDS: D5% in Water 1,000 ML IVC SCH ×3 (03:50→23:47)
[2020-05-11] MEDS ORDERED: Acetaminophen 650 MG RECTAL SUPP RC ONE (04:09)
[2020-05-11 04:17] LABS: Basophils # 0.1 K/mcL (0.0-0.2); Basophils % 0.5 %; Eosinophils # 0.1 K/mcL (0.0-0.6); Eosinophils % 1.3 %; Hematocrit 27.5 % (35.3-44.9); Hemoglobin 8.5 g/dL (11.5-15.4); Immature Granulocytes % 0.2 % (0-4); Lymphocytes # 1.3 K/mcL (0.6-4.6); Lymphocytes % 12.9 %; Mean Corpuscular HGB Conc 30.9 g/dL (31.6-35.5); Mean Corpuscular Hemoglobin 27.9 pg (28.0-33.3); Mean Corpuscular Volume 90.2 fL (83.0-100.0); Mean Platelet Volume 9.8 fL (9.4-12.4); Monocytes # 0.6 K/mcL (0.0-1.3); Monocytes % 5.8 %; Neutrophils # 7.9 K/mcL (1.6-8.9); Platelet Count 701 K/mcL (140-400); Red Blood Count 3.05 M/mcL (3.82-4.97); Red Cell Distribution Width 14.7 % (11.5-14.5); Segmented Neutrophils % 79.3 %; White Blood Count 9.9 K/mcL (4.3-11.1)
[2020-05-11 04:38] LABS: BUN/Creatinine Ratio 19 (6-26); Blood Urea Nitrogen 11 mg/dL (6-20); Calcium 8.4 mg/dL (8.6-10.3); Carbon Dioxide 31 mEq/L (23-29); Chloride 99 mEq/L (98-107); Glucose 100 mg/dL (70-105); Osmolality,Calculated 283 (280-300); Potassium 4.2 mEq/L (3.5-5.1); Sodium 137 mEq/L (136-145); eGFR For African Americans > 60 (> 60); eGFR For Non-African Americans > 60 (> 60)
[2020-05-11] MEDS: Dexmedetomidine HCl 400 MCG/100 ML MLS IVC SCH ×3 (05:14→20:31)
[2020-05-11 05:32] LABS: ABG Base Excess -7 mEq/L (-2 to 3); ABG HCO3 14 mEq/L (21-27); ABG Oxygen Saturation 99 % (95-98); ABG PCO2 16 mmHg (35-45); ABG PH 7.56 pH Units (7.32-7.45); ABG PO2 103 mmHg (85-104); ABG TCO2 14 mEq/L (20-26); Blood Gas Modality ASSIST CONTROL; Blood Gas VT 380 cc
[2020-05-11] MEDS ORDERED: *HR* Heparin 5,000 UNIT/ML VIAL SQ SCH (06:00)
[2020-05-11] MEDS ORDERED: Pantoprazole 40 MG VIAL IVP SCH (07:41)
[2020-05-11] MEDS: Ziprasidone 10 MG in Water for inj. (sterile) 0.5 ML IM SCH (09:01)
[2020-05-11] MEDS: Chlorhexidine Rinse 15 ML MOUTHWASH MM SCH ×2 (09:01→20:00)
[2020-05-11] MEDS: Meropenem 2,000 MG in Water for inj. (sterile) 20 ML IVP SCH ×3 (09:01→23:46)
[2020-05-11] MEDS: Sennosides/Docusate Sodium TABLET PO SCH ×2 (09:02→20:00)
[2020-05-11] MEDS: FentaNYL (PF) 2,500 MCG/50 ML IV.SOLN IVC SCH ×2 (09:22→22:00)
[2020-05-11] MEDS ORDERED: Pantoprazole 40 MG VIAL IVP ONE (10:45)
[2020-05-11] MEDS: Pantoprazole 40 MG in 0.9 % Sodium Chloride Mini Bag 100 ML IVC SCH ×4 (11:18→20:30)
[2020-05-11 12:36] LABS: Adenovirus Not Detected (Not Detect); Bordetella Pertussis Not Detected (Not Detect); Chlamydophila pneumoniae Not Detected (Not Detect); Coronavirus 229E Not Detected (Not Detect); Coronavirus HKU1 Not Detected (Not Detect); Coronavirus NL63 Not Detected (Not Detect); Coronavirus OC43 Not Detected (Not Detect); Human Metapneumovirus Not Detected (Not Detect); Human Rhinovirus/Enterovirus Not Detected (Not Detect); Influenza A Subtype 2009 H1 Not Detected (Not Detect); Influenza B Not Detected (Not Detect); Mycoplasma pneumoniae Not Detected (Not Detect); Parainfluenza Virus 1 Not Detected (Not Detect); Parainfluenza Virus 2 Not Detected (Not Detect); Parainfluenza Virus 3 Not Detected (Not Detect); Parainfluenza Virus 4 Not Detected (Not Detect); Respiratory Syncytial Virus Not Detected (Not Detect); SARS-CoV-2 Not Detected (Not Detect)
[2020-05-11 16:11] LABS: Hematocrit 26.8 % (35.3-44.9); Hemoglobin 8.2 g/dL (11.5-15.4)
[2020-05-11 16:34] LABS: ABG Base Excess 6 mEq/L (-2 to 3); ABG HCO3 32 mEq/L (21-27); ABG Oxygen Saturation 95 % (95-98); ABG PCO2 47 mmHg (35-45); ABG PH 7.44 pH Units (7.32-7.45); ABG PO2 74 mmHg (85-104); ABG TCO2 33 mEq/L (20-26); Blood Gas VT 380 cc
[2020-05-11] MEDS: Norepinephrine 4 MG/254 ML IV.SOLN IVC SCH (20:00)
[2020-05-12] MEDS: Pantoprazole 40 MG in 0.9 % Sodium Chloride Mini Bag 100 ML IVC SCH ×2 (01:30→06:35)
[2020-05-12 03:44] LABS: Basophils # 0.1 K/mcL (0.0-0.2); Basophils % 0.7 %; Eosinophils # 0.3 K/mcL (0.0-0.6); Eosinophils % 4.2 %; Hematocrit 25.2 % (35.3-44.9); Hemoglobin 7.6 g/dL (11.5-15.4); Immature Granulocytes % 0.4 % (0-4); Lymphocytes # 1.9 K/mcL (0.6-4.6); Lymphocytes % 28.4 %; Mean Corpuscular HGB Conc 30.2 g/dL (31.6-35.5); Mean Corpuscular Hemoglobin 27.2 pg (28.0-33.3); Mean Corpuscular Volume 90.3 fL (83.0-100.0); Mean Platelet Volume 9.4 fL (9.4-12.4); Monocytes # 0.6 K/mcL (0.0-1.3); Monocytes % 8.5 %; Platelet Count 569 K/mcL (140-400); Red Blood Count 2.79 M/mcL (3.82-4.97); Red Cell Distribution Width 14.6 % (11.5-14.5); Segmented Neutrophils % 57.8 %; White Blood Count 6.8 K/mcL (4.3-11.1)
[2020-05-12] MEDS: Artificial Tears SOLN 15 ML BOTTLE BOTH EYES SCH ×6 (03:57→23:46)
[2020-05-12] MEDS: *HR* LORazepam 2 MG/ML VIAL IVP SCH ×6 (03:57→23:45)
[2020-05-12 04:14] LABS: BUN/Creatinine Ratio 22 (6-26); Blood Urea Nitrogen 11 mg/dL (6-20); Calcium 8.6 mg/dL (8.6-10.3); Carbon Dioxide 29 mEq/L (23-29); Chloride 102 mEq/L (98-107); Glucose 91 mg/dL (70-105); Magnesium 2.1 mg/dL (1.6-2.6); Osmolality,Calculated 283 (280-300); Phosphorous 4.8 mg/dL (2.7-4.5); Potassium 4.2 mEq/L (3.5-5.1); Sodium 137 mEq/L (136-145); eGFR For African Americans > 60 (> 60); eGFR For Non-African Americans > 60 (> 60)
[2020-05-12 04:32] LABS: ABG Base Excess 7 mEq/L (-2 to 3); ABG HCO3 32 mEq/L (21-27); ABG Oxygen Saturation 96 % (95-98); ABG PCO2 49 mmHg (35-45); ABG PH 7.43 pH Units (7.32-7.45); ABG PO2 83 mmHg (85-104); ABG TCO2 33 mEq/L (20-26); Blood Gas Modality ASSIST CONTROL; Blood Gas VT 380 cc
[2020-05-12] MEDS: Dexmedetomidine HCl 400 MCG/100 ML MLS IVC SCH ×3 (04:44→21:04)
[2020-05-12] MEDS: Meropenem 2,000 MG in Water for inj. (sterile) 20 ML IVP SCH (07:50)
[2020-05-12] MEDS: Ziprasidone 10 MG in Water for inj. (sterile) 0.5 ML IM SCH (07:50)
[2020-05-12] MEDS: D5% in Water 1,000 ML IVC SCH ×2 (07:50→18:33)
[2020-05-12] MEDS: Chlorhexidine Rinse 15 ML MOUTHWASH MM SCH ×2 (07:50→21:05)
[2020-05-12] MEDS: Sennosides/Docusate Sodium TABLET PO SCH (07:51)
[2020-05-12] MEDS ORDERED: Bisacodyl 10 MG RECTAL SUPPOSITORY RC PRN (15:15)
[2020-05-12] MEDS: Sucralfate 1 GM TABLET PO SCH ×2 (17:16→19:52)
[2020-05-12] MEDS: Pantoprazole 40 MG VIAL IVP SCH (17:21)
[2020-05-12] MEDS: Norepinephrine 4 MG/254 ML IV.SOLN IVC SCH (19:51)
[2020-05-13] MEDS: *HR* LORazepam 2 MG/ML VIAL IVP SCH (03:50)
[2020-05-13] MEDS: D5% in Water 1,000 ML IVC SCH ×3 (03:50→23:05)
[2020-05-13] MEDS: Artificial Tears SOLN 15 ML BOTTLE BOTH EYES SCH ×2 (03:50→07:41)
[2020-05-13 04:16] LABS: Basophils % 0.5 %; Eosinophils # 0.1 K/mcL (0.0-0.6); Eosinophils % 0.9 %; Hematocrit 27.1 % (35.3-44.9); Hemoglobin 8.5 g/dL (11.5-15.4); Immature Granulocytes % 0.4 % (0-4); Lymphocytes # 1.7 K/mcL (0.6-4.6); Lymphocytes % 20.9 %; Mean Corpuscular HGB Conc 31.4 g/dL (31.6-35.5); Mean Corpuscular Hemoglobin 27.4 pg (28.0-33.3); Mean Corpuscular Volume 87.4 fL (83.0-100.0); Mean Platelet Volume 9.1 fL (9.4-12.4); Monocytes # 0.5 K/mcL (0.0-1.3); Monocytes % 6.6 %; Neutrophils # 5.6 K/mcL (1.6-8.9); Platelet Count 721 K/mcL (140-400); Segmented Neutrophils % 70.7 %; White Blood Count 7.9 K/mcL (4.3-11.1)
[2020-05-13 04:31] LABS: VBG Ionized Calcium 1.16 mmol/L (1.15-1.35)
[2020-05-13 04:39] LABS: Alanine Aminotransferase 9 Units/L (7-52); Albumin 2.8 g/dL (3.5-5.7); Albumin/Globulin Ratio 0.5 (1.1-2.2); Alkaline Phosphatase 81 Units/L (34-104); Aspartate Amino Transferase 14 Units/L (13-39); BUN/Creatinine Ratio 23 (6-26); Bilirubin,Total 0.6 mg/dL (0.3-1.0); Blood Urea Nitrogen 11 mg/dL (6-20); Calcium 8.8 mg/dL (8.6-10.3); Carbon Dioxide 24 mEq/L (23-29); Chloride 104 mEq/L (98-107); Globulin 5.7 g/dL (2.4-3.5); Glucose 99 mg/dL (70-105); Magnesium 2.1 mg/dL (1.6-2.6); Osmolality,Calculated 287 (280-300); Phosphorous 2.7 mg/dL (2.7-4.5); Potassium 3.5 mEq/L (3.5-5.1); Sodium 139 mEq/L (136-145); Total Protein 8.5 g/dL (6.4-8.9); eGFR For African Americans > 60 (> 60); eGFR For Non-African Americans > 60 (> 60)
[2020-05-13] MEDS: Pantoprazole 40 MG VIAL IVP SCH ×2 (06:14→16:28)
[2020-05-13] MEDS: Chlorhexidine Rinse 15 ML MOUTHWASH MM SCH (07:38)
[2020-05-13] MEDS: Sucralfate 1 GM TABLET PO SCH ×3 (07:38→21:39)
[2020-05-13] MEDS ORDERED: E-Z-HD (BARIUM SULF) SUSPENSION PO ONE (11:23)
[2020-05-13] MEDS ORDERED: E-Z-PAQUE (BARIUM SULF) SUSP 1 BOTTLE PO ONE (11:23)
[2020-05-13] MEDS ORDERED: Ipratropium/Albuterol Neb 3 ML IH PRN (13:35)
[2020-05-13] MEDS ORDERED: Dextrose Gel 15 GM/37.5 ML TUBE PO PRN ×2 (13:35)
[2020-05-13] MEDS ORDERED: D5% in Water 1,000 ML IVC PRN (13:35)
[2020-05-13] MEDS ORDERED: *HR* Dextrose 50 % in Water (Vial) 50 ML VIAL IVP PRN (13:35)
[2020-05-13] MEDS ORDERED: Naloxone 0.4 MG/ML INJ IVP PRN (13:35)
[2020-05-13] MEDS: *HR* Heparin 5,000 UNIT/ML VIAL SQ SCH (16:27)
[2020-05-13] MEDS: *HR* LORazepam 1 MG TABLET PO PRN (16:27)
[2020-05-13] MEDS ORDERED: *HR* Heparin 5,000 UNIT/ML VIAL SQ SCH (18:00)
[2020-05-13] MEDS ORDERED: Acetaminophen 325 MG TABLET PO PRN (18:27)
[2020-05-13] MEDS: *HR* OxyCODONE Immed Rel 5 MG TABLET PO PRN (21:39)
[2020-05-14] MEDS: *HR* LORazepam 1 MG TABLET PO PRN ×3 (02:35→22:44)
[2020-05-14 03:50] LABS: VBG Ionized Calcium 1.16 mmol/L (1.15-1.35)
[2020-05-14 03:52] LABS: Basophils # 0.1 K/mcL (0.0-0.2); Basophils % 0.6 %; Eosinophils # 0.1 K/mcL (0.0-0.6); Eosinophils % 1.5 %; Hematocrit 29.7 % (35.3-44.9); Hemoglobin 9.3 g/dL (11.5-15.4); Immature Granulocytes % 0.4 % (0-4); Lymphocytes # 2.5 K/mcL (0.6-4.6); Lymphocytes % 30.2 %; Mean Corpuscular HGB Conc 31.3 g/dL (31.6-35.5); Mean Corpuscular Hemoglobin 27.8 pg (28.0-33.3); Mean Corpuscular Volume 88.7 fL (83.0-100.0); Mean Platelet Volume 8.9 fL (9.4-12.4); Monocytes # 0.7 K/mcL (0.0-1.3); Monocytes % 8.5 %; Neutrophils # 4.8 K/mcL (1.6-8.9); Platelet Count 774 K/mcL (140-400); Red Blood Count 3.35 M/mcL (3.82-4.97); Red Cell Distribution Width 14.6 % (11.5-14.5); Segmented Neutrophils % 58.8 %; White Blood Count 8.1 K/mcL (4.3-11.1)
[2020-05-14 04:09] LABS: Alanine Aminotransferase 16 Units/L (7-52); Albumin/Globulin Ratio 0.5 (1.1-2.2); Alkaline Phosphatase 81 Units/L (34-104); Aspartate Amino Transferase 29 Units/L (13-39); BUN/Creatinine Ratio 30 (6-26); Bilirubin,Total 0.5 mg/dL (0.3-1.0); Blood Urea Nitrogen 15 mg/dL (6-20); Calcium 8.8 mg/dL (8.6-10.3); Carbon Dioxide 23 mEq/L (23-29); Chloride 109 mEq/L (98-107); Globulin 5.6 g/dL (2.4-3.5); Glucose 120 mg/dL (70-105); Osmolality,Calculated 292 (280-300); Phosphorous 2.6 mg/dL (2.7-4.5); Potassium 3.4 mEq/L (3.5-5.1); Sodium 140 mEq/L (136-145); Total Protein 8.6 g/dL (6.4-8.9); eGFR For African Americans > 60 (> 60); eGFR For Non-African Americans > 60 (> 60)
[2020-05-14] MEDS: *HR* Heparin 5,000 UNIT/ML VIAL SQ SCH ×2 (05:51→17:24)
[2020-05-14] MEDS: Pantoprazole 40 MG VIAL IVP SCH ×2 (05:53→17:24)
[2020-05-14] MEDS: *HR* OxyCODONE Immed Rel 5 MG TABLET PO PRN ×3 (05:53→22:43)
[2020-05-14] MEDS: D5% in Water 1,000 ML IVC SCH (07:38)
[2020-05-14] MEDS: Sucralfate 1 GM TABLET PO SCH ×4 (07:50→22:44)
[2020-05-15] MEDS: D5% in Water 1,000 ML IVC SCH ×2 (01:04→01:12)
[2020-05-15 03:20] LABS: Basophils # 0.1 K/mcL (0.0-0.2); Basophils % 0.9 %; Eosinophils # 0.3 K/mcL (0.0-0.6); Eosinophils % 3.3 %; Hematocrit 28.5 % (35.3-44.9); Hemoglobin 8.7 g/dL (11.5-15.4); Immature Granulocytes % 0.1 % (0-4); Lymphocytes # 3.6 K/mcL (0.6-4.6); Lymphocytes % 47.8 %; Mean Corpuscular HGB Conc 30.5 g/dL (31.6-35.5); Mean Corpuscular Hemoglobin 27.5 pg (28.0-33.3); Mean Corpuscular Volume 90.2 fL (83.0-100.0); Mean Platelet Volume 9.1 fL (9.4-12.4); Monocytes # 0.6 K/mcL (0.0-1.3); Monocytes % 8.4 %; Platelet Count 590 K/mcL (140-400); Red Blood Count 3.16 M/mcL (3.82-4.97); Red Cell Distribution Width 14.5 % (11.5-14.5); Segmented Neutrophils % 39.5 %; White Blood Count 7.6 K/mcL (4.3-11.1)
[2020-05-15 03:21] LABS: VBG Ionized Calcium 1.11 mmol/L (1.15-1.35)
[2020-05-15 03:41] LABS: Alanine Aminotransferase 23 Units/L (7-52); Albumin 2.8 g/dL (3.5-5.7); Albumin/Globulin Ratio 0.6 (1.1-2.2); Alkaline Phosphatase 75 Units/L (34-104); Aspartate Amino Transferase 28 Units/L (13-39); BUN/Creatinine Ratio 23 (6-26); Bilirubin,Total 0.4 mg/dL (0.3-1.0); Blood Urea Nitrogen 10 mg/dL (6-20); Calcium 8.4 mg/dL (8.6-10.3); Carbon Dioxide 22 mEq/L (23-29); Chloride 109 mEq/L (98-107); Globulin 4.8 g/dL (2.4-3.5); Glucose 92 mg/dL (70-105); Magnesium 1.8 mg/dL (1.6-2.6); Osmolality,Calculated 287 (280-300); Potassium 3.3 mEq/L (3.5-5.1); Sodium 139 mEq/L (136-145); Total Protein 7.6 g/dL (6.4-8.9); eGFR For African Americans > 60 (> 60); eGFR For Non-African Americans > 60 (> 60)
[2020-05-15] MEDS: Pantoprazole 40 MG VIAL IVP SCH ×2 (06:33→17:27)
[2020-05-15] MEDS: *HR* OxyCODONE Immed Rel 5 MG TABLET PO PRN ×3 (06:34→21:24)
[2020-05-15] MEDS: *HR* Heparin 5,000 UNIT/ML VIAL SQ SCH ×2 (06:40→17:28)
[2020-05-15] MEDS: Sucralfate 1 GM TABLET PO SCH ×4 (07:47→21:24)
[2020-05-15] MEDS: *HR* LORazepam 1 MG TABLET PO PRN ×3 (07:49→21:24)
[2020-05-16] MEDS: *HR* Heparin 5,000 UNIT/ML VIAL SQ SCH ×2 (06:04→16:33)
[2020-05-16] MEDS: Pantoprazole 40 MG VIAL IVP SCH ×2 (06:05→16:41)
[2020-05-16] MEDS: *HR* OxyCODONE Immed Rel 5 MG TABLET PO PRN ×3 (06:06→23:22)
[2020-05-16] MEDS: *HR* LORazepam 1 MG TABLET PO PRN ×2 (06:06→16:32)
[2020-05-16] MEDS: D5% in Water 1,000 ML IVC SCH ×2 (07:15→11:48)
[2020-05-16] MEDS: Sucralfate 1 GM TABLET PO SCH ×4 (08:55→23:21)
[2020-05-16 09:58] LABS: Basophils # 0.1 K/mcL (0.0-0.2); Basophils % 1.1 %; Eosinophils # 0.4 K/mcL (0.0-0.6); Eosinophils % 6.9 %; Hematocrit 29.8 % (35.3-44.9); Hemoglobin 9.2 g/dL (11.5-15.4); Immature Granulocytes % 0.5 % (0-4); Lymphocytes # 2.5 K/mcL (0.6-4.6); Mean Corpuscular HGB Conc 30.9 g/dL (31.6-35.5); Mean Corpuscular Hemoglobin 27.7 pg (28.0-33.3); Mean Corpuscular Volume 89.8 fL (83.0-100.0); Mean Platelet Volume 9.2 fL (9.4-12.4); Monocytes # 0.5 K/mcL (0.0-1.3); Monocytes % 7.7 %; Neutrophils # 2.7 K/mcL (1.6-8.9); Platelet Count 523 K/mcL (140-400); Red Blood Count 3.32 M/mcL (3.82-4.97); Red Cell Distribution Width 14.6 % (11.5-14.5); Segmented Neutrophils % 43.8 %; White Blood Count 6.2 K/mcL (4.3-11.1)
[2020-05-16 10:17] LABS: BUN/Creatinine Ratio 19 (6-26); Blood Urea Nitrogen 10 mg/dL (6-20); Calcium 8.7 mg/dL (8.6-10.3); Carbon Dioxide 26 mEq/L (23-29); Chloride 106 mEq/L (98-107); Glucose 92 mg/dL (70-105); Osmolality,Calculated 283 (280-300); Potassium 3.7 mEq/L (3.5-5.1); Sodium 137 mEq/L (136-145); eGFR For African Americans > 60 (> 60); eGFR For Non-African Americans > 60 (> 60)
[2020-05-17] MEDS: *HR* LORazepam 1 MG TABLET PO PRN ×2 (00:40→08:30)
[2020-05-17 01:09] LABS: Hematocrit 27.3 % (35.3-44.9); Hemoglobin 8.8 g/dL (11.5-15.4); Mean Corpuscular HGB Conc 32.2 g/dL (31.6-35.5); Mean Corpuscular Hemoglobin 27.8 pg (28.0-33.3); Mean Corpuscular Volume 86.1 fL (83.0-100.0); Mean Platelet Volume 9.5 fL (9.4-12.4); Platelet Count 516 K/mcL (140-400); Red Blood Count 3.17 M/mcL (3.82-4.97); Red Cell Distribution Width 14.5 % (11.5-14.5); White Blood Count 8.1 K/mcL (4.3-11.1)
[2020-05-17 01:18] LABS: BUN/Creatinine Ratio 22 (6-26); Blood Urea Nitrogen 12 mg/dL (6-20); Calcium 8.5 mg/dL (8.6-10.3); Carbon Dioxide 26 mEq/L (23-29); Chloride 108 mEq/L (98-107); Glucose 93 mg/dL (70-105); Osmolality,Calculated 289 (280-300); Potassium 3.6 mEq/L (3.5-5.1); Sodium 140 mEq/L (136-145); eGFR For African Americans > 60 (> 60); eGFR For Non-African Americans > 60 (> 60)
[2020-05-17] MEDS: Pantoprazole 40 MG VIAL IVP SCH (06:10)
[2020-05-17] MEDS: *HR* Heparin 5,000 UNIT/ML VIAL SQ SCH (06:11)
[2020-05-17] MEDS: *HR* OxyCODONE Immed Rel 5 MG TABLET PO PRN (06:11)
[2020-05-17] MEDS: Sucralfate 1 GM TABLET PO SCH ×2 (08:14→12:11)
[2020-05-17] MEDS: D5% in Water 1,000 ML IVC SCH (08:16)
[2020-05-17] MEDS ORDERED: *HR* LORazepam 2 MG/ML VIAL IVP PRN (10:21)
[2020-05-17 10:56] VITALS: BP 116/75
== END 2020-05-17 12:43 | disposition left against medical advice (07) | DRG 720 ==
LOC: EMEROOARM 11:10 → ICNU 15:29 → SUATTDRO 15:29 → ICNU 15:59 → 2ANU 05-14 14:19
PROVIDERS: ADMIT Internal Medicine; ATTEND Internal Medicine
PROC: ENDOEBX (2020-05-11 18:15)